=== PATIENT | male | born 1985 | race Caucasian/White ===

== ENCOUNTER 2020-10-17 16:00 | Outpatient (RCR) | payer MEDICAID, SELFPAY | END 2020-11-01 12:46 | disposition home or self-care (01) | LOC: PT.CARL 16:00 | PROVIDERS: Visit Provider Nurse Practitioner Family | DX: M54.5 Low back pain (principal) | CPT/HCPCS: 97012; 97110; 97140; 97163 ==

== ENCOUNTER → 2020-10-24 16:06 | Outpatient (CLI) | payer MEDICAID, SELFPAY ==
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
== END ==
PROVIDERS: PCP Nurse Practitioner Family; Visit Provider Nurse Practitioner Family
DX: M54.16 Radiculopathy, lumbar region (principal)
CPT/HCPCS: 72148; 76376

== ENCOUNTER → 2021-01-31 07:14 | Outpatient (CLI) | payer MEDICAID, SELFPAY ==
[2021-01-31 15:18] LABS: Basophils % 0.4 % (0.1-2.0); Eosinophils # 0.1 K/mm3 (0.0-0.4); Eosinophils % 3.2 % (0.1-12.0); Hematocrit 43.5 % (42.0-52.0); Hemoglobin 14.4 g/dL (14.1-18.0); Lymphocytes # 1.6 K/mm3 (0.7-4.5); Lymphocytes % 37.1 % (10-50); Mean Corpuscular HGB Conc 33.1 g/dL (31.8-35.4); Mean Corpuscular Hemoglobin 28.5 pg (27.0-31.2); Mean Platelet Volume 9.5 fl (7.4-10.4); Monocytes # 0.2 K/mm3 (0.1-1.0); Monocytes % 5.4 % (1.7-9.3); Neutrophils # 2.3 K/mm3 (1.8-7.8); Neutrophils % 53.8 % (37.0-80.0); Platelet Count 215 K/mm3 (142-424); Red Blood Count 5.05 M/mm3 (4.60-6.20); Red Cell Distribution Width 12.9 % (11.5-17.5); White Blood Count 4.3 K/mm3 (4.8-10.8)
[2021-01-31 15:27] LABS: Anion Gap 14.2 mEq/L (5-15); Blood Urea Nitrogen 18 mg/dl (9-20); Calcium 9.2 mg/dl (8.4-10.2); Carbon Dioxide 25 mmol/L (22.0-30.0); Chloride 106 mmol/L (98-107); Estimated Glomerular Filt Rate 76 ml/min (>60); GFR (African American) 92 ML/MIN (>60); Glucose 89 mg/dl (74-100); Potassium 4.2 mmoL/L (3.5-5.1); Sodium 141 mmol/L (136-145)
== END ==
PROVIDERS: Visit Provider Orthopaedic Surgery
DX: Z01.812 Encounter for preprocedural laboratory examination (principal); Z20.822 Contact with and (suspected) exposure to COVID-19; U07.1 COVID-19
CPT/HCPCS: 36415; 80048; 85025; 86850; U0003

== ENCOUNTER 2021-06-18 09:00 | Outpatient (RCR) | payer MEDICAID, SELFPAY | END 2021-07-16 08:33 | disposition home or self-care (01) | LOC: PT.CARL 09:00 | PROVIDERS: PCP Nurse Practitioner Family; Visit Provider Orthopaedic Surgery | DX: M79.662 Pain in left lower leg (principal); M96.1 Postlaminectomy syndrome, not elsewhere classified | CPT/HCPCS: 97010; 97014; 97033; 97110; 97140; 97163; 97164; G0283 ==